=== PATIENT | male | born 1980 | race Caucasian/White ===

== ENCOUNTER 2018-11-17 00:32 | Emergency (ER) | payer SELFPAY | END 2018-11-17 00:49 | LOC: ERS 00:32 | DX: Z04.1 Encounter for examination and observation following transport accident (principal); F17.220 Nicotine dependence, chewing tobacco, uncomplicated; V49.9XXA Car occupant (driver) (passenger) injured in unspecified traffic accident, initial encounter | CPT/HCPCS: 99283 ==